=== PATIENT | female | born 1975 | race Caucasian/White ===

== ENCOUNTER 2017-05-19 07:35 | Emergency (ER) | payer MEDICAID ==
[~2017-05-19] VITALS: Ht 162.6 cm; Wt 75.0 kg
[2017-05-19 12:35] VITALS: BP 134/86
== END 2017-05-19 12:40 | disposition home or self-care (01) ==
LOC: ER 07:41
DX: F32.9 Major depressive disorder, single episode, unspecified (principal); F41.9 Anxiety disorder, unspecified
CPT/HCPCS: 99284; Z7610